=== PATIENT | male | born 1975 | race Two or more races ===

== ENCOUNTER 2021-01-15 17:38 | Emergency (ER) | payer OTHER ==
[~2021-01-15] VITALS: Ht 172.7 cm; Wt 65.8 kg
[2021-01-15 18:01] VITALS: BP 140/90
--- NOTE | 2021-01-15 18:17 | NUR ---
SUBCONJUNCTIVAL HEMORRHAGE THAT STARTED YESTERDAY,R EYE OF 3RD AND 4TH METATARSAL,RIGHT HAND. WILL CONTINUE TO MONITOR THE PATIENT.
--- NOTE | 2021-01-15 20:10 | NUR ---
Patient discharged to home in stable condition. Written and verbal after care instructions given. Patient verbalizes understanding of instruction. Pt ambulatory with a steady gait
== END 2021-01-15 20:37 | disposition home or self-care (01) ==
LOC: ER 18:30
DX: S62.92XA Unspecified fracture of left hand, initial encounter for closed fracture (principal); S00.81XA Abrasion of other part of head, initial encounter; Z60.2 Problems related to living alone; V49.69XA Unspecified car occupant injured in collision with other motor vehicles in traffic accident, initial encounter; Y93.89 Activity, other specified; Y92.413 State road as the place of occurrence of the external cause; Y99.8 Other external cause status

== ENCOUNTER 2021-04-20 20:08 | Emergency (ER) | payer OTHER ==
[~2021-04-20] VITALS: Ht 175.3 cm; Wt 65.8 kg
--- NOTE | 2021-04-20 21:04 | NUR ---
BIBWIFE C/O ALCOHOL WITHDRAWAL. TOOK NALTROXONE HYDROCHLORIDE 50MG [employer]ONT [employer]. LAST DRINK 3 HOURS AGO PER PT. C/O ANXIETY AND NASUEA. PT AWAKE AND ALERT X4 BREATHING EVEN AND UNLABORED. OPLACED ON MONITOR AND V/S STABLE.
[2021-04-20] MEDS ORDERED: CHLORDIAZEPOXIDE HCL 25 MG CAPSULE ONE (21:13)
--- NOTE | 2021-04-20 21:19 | NUR ---
Patient discharged to home in stable condition. Written and verbal after care instructions given. Patient verbalizes understanding of instruction.
[2021-04-20 21:26] VITALS: BP 148/82
[2021-04-20] MEDS ORDERED: CHLORDIAZEPOXIDE HCL 25 MG CAPSULE PO ONE (21:30)
== END 2021-04-20 21:26 | disposition home or self-care (01) ==
LOC: ER 20:13
DX: F10.229 Alcohol dependence with intoxication, unspecified (principal); Z60.2 Problems related to living alone; Y90.9 Presence of alcohol in blood, level not specified